=== PATIENT | female | born 1955 | race Caucasian/White ===

== ENCOUNTER → 2019-10-04 19:48 | Outpatient (CLI) | payer BC ==
[2019-10-04 21:59] LABS: T4 THYROXIN - FREE 1.59 ng/dL (0.76-1.46); THYROID STIMULATING HORMONE 1.37 uIU/mL (0.36-3.74)
== END | disposition home or self-care (01) ==
LOC: D.LABREF 19:48 → D.LDO 19:48
PROVIDERS: ATTEND Nurse Practitioner
DX: R00.0 Tachycardia, unspecified (principal)

== ENCOUNTER → 2019-10-27 08:53 | Outpatient (CLI) | payer MEDICARE, BC | END | disposition home or self-care (01) | LOC: D.HCCECHO 10-17 13:00 | PROVIDERS: ATTEND Internal Medicine Cardiovascular Disease | DX: R00.2 Palpitations (principal) ==